=== PATIENT | male | born 1950 | race Caucasian/White ===

== ENCOUNTER 2022-06-10 01:26 | Observation (INO) | payer MEDICARE, OTHER ==
[~2022-06-10] VITALS: Ht 170.2 cm; Wt 77.1 kg
[~2022-06-10 01:26] MED LIST: Citalopram HBr10 MG PO
[2022-06-10 02:55] LABS: BASOPHILS ABSOLUTE AUTO 0.04 K/mm3 (0.00-0.23); BASOPHILS PERCENT AUTO 1 % (0-2); EOSINOPHILS ABSOLUTE AUTO 0.16 K/mm3 (0.00-0.68); EOSINOPHILS PERCENT AUTO 2 % (0-6); Hematocrit 41.3 % (37.0-53.0); Hemoglobin 14.3 g/dL (13.5-17.5); IMMATURE GRAN ABSOLUTE AUTO 0.01 K/mm3 (0.00-0.10); IMMATURE GRAN PERCENT AUTO 0 % (0-1); LYMPHOCYTES ABSOLUTE AUTO 1.35 K/mm3 (0.84-5.20); LYMPHOCYTES PERCENT AUTO 20 % (21-46); MONOCYTES ABSOLUTE AUTO 0.55 K/mm3 (0.16-1.47); MONOCYTES PERCENT AUTO 8 % (4-13); Mean Corpuscular HGB 29.7 pg (26.0-34.0); Mean Corpuscular HGB Conc 34.6 g/dL (31.5-36.5); Mean Corpuscular Volume 86 fL (80-100); Mean Platelet Volume 10.5 fL (9.1-12.4); NEUTROPHILS ABSOLUTE AUTO 4.78 K/mm3 (1.96-9.15); NEUTROPHILS PERCENT AUTO 69 % (41-73); Platelet Count 191 K/mm3 (150-400); RDW Coefficient Variation 12.5 % (11.7-14.2); RDW Standard Deviation 39.2 fL (35.1-46.3); Red Blood Cell Count 4.82 M/mm3 (4.30-5.90); White Blood Cell Count 6.89 K/mm3 (4.00-11.30)
[2022-06-10 03:16] LABS: Acetaminophen, Random <2.0 ug/mL (10.0-30.0); Anion Gap 6 mmol/L (6-16); Blood Urea Nitrogen 26 mg/dL (8-24); Bun/Creatinine Ratio 30.8 (12.0-20.0); CO2, Blood 28 mmol/L (21-32); Calcium, Blood 8.5 mg/dL (8.5-10.1); Chloride, Blood 106 mmol/L (98-108); Creatinine, Blood 0.85 mg/dL (0.60-1.20); Glomerular Filtration Rate 94 (60-); Glucose, Blood 103 mg/dL (70-99); Potassium, Blood 3.5 mmol/L (3.5-5.5); Salicylate <1.7 mg/dL (2.8-20.0); Sodium, Blood 140 mmol/L (136-145)
[2022-06-10 04:06] LABS: U Amphetamine Screen Not Detected; U Barbituate Screen Not Detected; U Benzodiazapine Screen Not Detected; U Buprenorphine Screen Not Detected; U Cannabinoids Screen Not Detected; U Cocaine Screen Not Detected; U Methadone Screen Not Detected; U Methamphetamine Screen Not Detected; U Opiates Screen Not Detected; U Oxycodone Screen Not Detected; U Phencyclidine Screen Not Detected; U Propoxyphene Screen Not Detected
[2022-06-10 04:32] LABS: Influenza A, PCR NEGATIVE (NEGATIVE); Influenza B, PCR NEGATIVE (NEGATIVE); Resp Syncytial Virus, PCR NEGATIVE (NEGATIVE); SARS-Cov-2 (COVID-19) PCR, MMC NEGATIVE (NEGATIVE)
== END 2022-06-11 14:08 ==
LOC: ER 01:26 → EOR 01:27
PROVIDERS: ADMIT Emergency Medicine
DX: F33.2 Major depressive disorder, recurrent severe without psychotic features (principal); Z20.822 Contact with and (suspected) exposure to COVID-19
CPT/HCPCS: 0241U; 80048; 85025; 93005; 93010; A9270; G0480

== ENCOUNTER 2024-04-04 11:10 | Observation (INO) | payer MEDICARE, OTHER ==
[~2024-04-04] VITALS: Ht 172.7 cm; Wt 88.5 kg
[2024-04-04 12:39] LABS: BASOPHILS ABSOLUTE AUTO 0.03 K/mm3 (0.00-0.23); BASOPHILS PERCENT AUTO 1 % (0-2); EOSINOPHILS ABSOLUTE AUTO 0.17 K/mm3 (0.00-0.68); EOSINOPHILS PERCENT AUTO 3 % (0-6); Hemoglobin 15.3 g/dL (13.5-17.5); IMMATURE GRAN ABSOLUTE AUTO 0.01 K/mm3 (0.00-0.10); IMMATURE GRAN PERCENT AUTO 0 % (0-1); LYMPHOCYTES ABSOLUTE AUTO 2.02 K/mm3 (0.84-5.20); LYMPHOCYTES PERCENT AUTO 35 % (21-46); MONOCYTES ABSOLUTE AUTO 0.33 K/mm3 (0.16-1.47); MONOCYTES PERCENT AUTO 6 % (4-13); Mean Corpuscular HGB 28.8 pg (26.0-34.0); Mean Corpuscular Volume 85 fL (80-100); Mean Platelet Volume 11.1 fL (9.1-12.4); NEUTROPHILS ABSOLUTE AUTO 3.14 K/mm3 (1.96-9.15); NEUTROPHILS PERCENT AUTO 55 % (41-73); Platelet Count 213 K/mm3 (150-400); RDW Coefficient Variation 13.2 % (11.7-14.2); RDW Standard Deviation 40.5 fL (35.1-46.3); Red Blood Cell Count 5.32 M/mm3 (4.30-5.90)
[2024-04-04 12:52] LABS: Albumin, Blood 3.4 g/dL (3.4-5.0); Bilirubin, Total 0.6 mg/dL (0.1-1.0); Bun/Creatinine Ratio 20.4 (12.0-20.0); Calcium, Blood 8.5 mg/dL (8.5-10.1); Creatinine, Blood 1.08 mg/dL (0.60-1.20); Globulin, Blood 3.4 g/dL (2.2-4.0); Potassium, Blood 3.5 mmol/L (3.5-5.5); Total Protein, Blood 6.8 g/dL (6.4-8.2)
[2024-04-04 15:27] LABS: U Amphetamine Screen Not Detected; U Barbituate Screen Not Detected; U Benzodiazapine Screen Not Detected; U Buprenorphine Screen Not Detected; U Cannabinoids Screen Not Detected; U Cocaine Screen Not Detected; U Methadone Screen Not Detected; U Methamphetamine Screen Not Detected; U Opiates Screen Not Detected; U Oxycodone Screen Not Detected; U Phencyclidine Screen Not Detected
[2024-04-04] MEDS ORDERED: ARIPIPRAZOLE2 M1 PO (15:43)
[2024-04-04] MEDS ORDERED: VENLAFAXINE H37.5 M1 PO (15:43)
[2024-04-04 18:23] VITALS: BP 153/72
--- NOTE | 2024-04-04 18:45 | NUR ---
SHIFT SUMMARY PT ARRIVED TO THE FLOOR FROM THE ED AT 1820. PT A&OX4, ASYMPTOMATICALLY HYPERTENSIVE, AMB IND FROM GURNEY TO BED, TOLERATING PO, AND DENIED PAIN. NO SLURRED SPEECH OR R SIDED WEAKNESS PRESENT. PT ORIENTED TO ROOM AND CALL LIGHT. PT ABLE TO MAKE NEEDS KNOWN.
[2024-04-04 19:03] VITALS: BP 151/79
[2024-04-04] MEDS ORDERED: Venlafaxine HCl 25 MG Tab PO SCH (21:00)
[2024-04-05 03:03] VITALS: BP 136/82
--- NOTE | 2024-04-05 04:44 | NUR ---
SHIFT SUMMARY A/OX4. RIGHT LEG SLIGHTLY WEAKER THAN LEFT. NO DRIFTING. NO OTHER DEFICITS NOTED. AMBULATING INDEPENDENTLY IN ROOM. TELE CALLED TO REPORT AT 1952 PATIENT HAD A 4 SECOND RUN OF VENTRICULAR STANDSTILL, I WAS IN THE ROOM WHEN THEY CALLED. PT WAS ASYMPTOMATIC, RESTING IN BED, TALKING TO ME. NO OTHER CALLS FROM TELE T/O NIGHT. ABLE TO MAKE NEEDS KNOWN. CALL LIGHT IN REACH.
[2024-04-05 05:40] LABS: BASOPHILS ABSOLUTE AUTO 0.03 K/mm3 (0.00-0.23); BASOPHILS PERCENT AUTO 1 % (0-2); EOSINOPHILS PERCENT AUTO 3 % (0-6); Hematocrit 41.4 % (37.0-53.0); Hemoglobin 14.2 g/dL (13.5-17.5); IMMATURE GRAN ABSOLUTE AUTO 0.01 K/mm3 (0.00-0.10); IMMATURE GRAN PERCENT AUTO 0 % (0-1); LYMPHOCYTES ABSOLUTE AUTO 2.19 K/mm3 (0.84-5.20); LYMPHOCYTES PERCENT AUTO 36 % (21-46); MONOCYTES ABSOLUTE AUTO 0.58 K/mm3 (0.16-1.47); MONOCYTES PERCENT AUTO 10 % (4-13); Mean Corpuscular HGB 28.7 pg (26.0-34.0); Mean Corpuscular HGB Conc 34.3 g/dL (31.5-36.5); Mean Corpuscular Volume 84 fL (80-100); Mean Platelet Volume 10.6 fL (9.1-12.4); NEUTROPHILS ABSOLUTE AUTO 3.01 K/mm3 (1.96-9.15); NEUTROPHILS PERCENT AUTO 50 % (41-73); Platelet Count 191 K/mm3 (150-400); RDW Coefficient Variation 13.2 % (11.7-14.2); RDW Standard Deviation 40.4 fL (35.1-46.3); Red Blood Cell Count 4.95 M/mm3 (4.30-5.90); White Blood Cell Count 6.02 K/mm3 (4.00-11.30)
[2024-04-05 06:22] LABS: Alanine Aminotransfer (ALT/SGP 20 U/L (12-78); Albumin, Blood 3.1 g/dL (3.4-5.0); Alk Phos 90 U/L (50-136); Anion Gap 10 mmol/L (3-11); Aspartate Aminotrans (AST/SGOT 11 U/L (12-37); Bilirubin, Total 0.5 mg/dL (0.1-1.0); Blood Urea Nitrogen 23 mg/dL (8-24); Bun/Creatinine Ratio 21.1 (12.0-20.0); CHOL/HDL RATIO 6.5; CO2, Blood 25 mmol/L (21-32); Calcium, Blood 8.2 mg/dL (8.5-10.1); Chloride, Blood 109 mmol/L (98-108); Cholesterol 196 mg/dL (50-200); Creatinine, Blood 1.09 mg/dL (0.60-1.20); Glomerular Filtration Rate 73 (60-); Glucose, Blood 104 mg/dL (70-99); HDL Cholesterol 30 mg/dL (>39); LDL/HDL RATIO 4.5; Low Density Lipoprotein Chol 134 mg/dL (0-110); Magnesium, Blood 2.2 mg/dL (1.6-2.4); Potassium, Blood 3.8 mmol/L (3.5-5.5); Sodium, Blood 140 mmol/L (136-145); Total Protein, Blood 6.1 g/dL (6.4-8.2); Triglycerides 159 mg/dL (30-160); Very Low Density Lipoprot Chol 31 mg/dL (6-32)
[2024-04-05 07:31] VITALS: BP 138/83
[2024-04-05] MEDS ORDERED: Atorvastatin 40 MG Tab PO SCH (09:00)
[2024-04-05] MEDS ORDERED: ARIPiprazole 2 MG Tablet PO SCH (09:00)
[2024-04-05] MEDS ORDERED: Enoxaparin 40 MG/0.4 ML SYR SC SCH (09:00)
[2024-04-05] MEDS ORDERED: Aspirin 81 MG Chew PO SCH (09:00)
[2024-04-05] MEDS ORDERED: Clopidogrel Bisulfate 75 MG Tab PO SCH (09:00)
--- NOTE | 2024-04-05 09:55 | NUR ---
PATIENT NOT WANTING TO TAKE ATORVASTATIN UNTIL TALKING WITH . HE IS REQUESTING LOWEST DOSE POSSIBLE. DR CAMACHO NOTIFIED. ORDER RECIEVED TO DISCONTINUE ATORVASTATIN UNTIL PATIENT SPEAKS WITH PCP OUTPATIENT.
[2024-04-05] MEDS ORDERED: ASPI81CH PO (15:31)
[2024-04-05] MEDS ORDERED: CLOP75 PO (15:32)
--- NOTE | 2024-04-05 16:04 | NUR ---
DISCHARGE NOTE PATIENT EDUCATION AND MEDICATION PACKET PRINTED AND SIGNED BY PATIENT. ALL MEDICATIONS REVIEWED WITH PATIENT AND PATIENT ENCOURAGED TO FOLLOW UP WITH DR SPIVEY WITHIN 1 WEEK AND TO CALL TODAY FOR HOSPITAL FOLLOW UP. EDUCATION PACKET REVIEWED WITH PATIENT. PATIENT LEFT UNIT AT 1557 VIA TRANSPORT CHAIR WITH [facility] GUERRA AND WHEELED TO [facility]. PATIENT LEAVING VIA PRIVATE VEHICLE.
--- NOTE | 2024-04-05 16:56 | NUR ---
DISCHARGE NOTE- PT WAS GIVEN VERBAL AND WRITTEN DISCHARGE INSTRUCTIONS AND ACKNOWLEDGED UNDERSTANDING OF THEM. IV AND TELE DC'D PRIOR TO DISCHARGE . PT ESCORTED OUT VIA WC BY THE RETAIL SERVICES PROFESSIONAL. NO S&S OF DISTRESS NOTED AT THE TIME OF DISCHARGE.
== END 2024-04-05 15:54 | disposition home health service (06) ==
LOC: ER 11:10 → MEDS 11:11
PROVIDERS: Emergency Medicine; Student in an Organized Health Care Education/Training Program; ADMIT Family Medicine
DX: I63.9 Cerebral infarction, unspecified (principal); R47.89 Other speech disturbances; G81.91 Hemiplegia, unspecified affecting right dominant side; F32.A Depression, unspecified; Z79.899 Other long term (current) drug therapy
CPT/HCPCS: 36415; 70450; 70496; 70498; 70551; 80053; 80061; 80320; 83036; 83735; 85025; 85730; 93005; 93010; 93306; 96372; 99285-25; A9270; G0378; J1650; Q9967